=== PATIENT | male | born 1945 | race Two or more races ===

== ENCOUNTER 2018-08-17 10:21 | Emergency (ER) | payer OTHER ==
[~2018-08-17] VITALS: Ht 165.1 cm; Wt 116.6 kg
[2018-08-17 10:31] VITALS: Ht 165.1 cm; Wt 116.6 kg
[2018-08-17 14:23] VITALS: BP 158/99
== END 2018-08-17 14:23 | disposition home or self-care (01) ==
LOC: ED 10:21
DX: M25.561 Pain in right knee (principal); M25.562 Pain in left knee; Z98.890 Other specified postprocedural states
CPT/HCPCS: J1885